=== PATIENT | female | born 1935 | race Caucasian/White ===

== ENCOUNTER 2019-12-04 15:31 | Emergency (ER) | payer MEDICARE, MEDICAID ==
[~2019-12-04] VITALS: Ht 162.6 cm; Wt 48.9 kg
[~2019-12-04 15:31] MED LIST: ACTO150T PO; CORE25TA PO; FLEEENE4 PR; GLUC1VIA2 SC; INSULANT SC; KETOROLAC 0.4%; KLOR20TA PO; LEAD1CHW PO; LEVO75TA3 PO; LISI5TAB PO; LYRI75CA PO; MAGN64TASA PO; NORV2TAB PO; OMEP20CA3 PO; PERC7.5T12 PO; POLY1POW4 PO; PREDNISOLONE AC; PREDNISOLONE AC 1% OS; PROT1TAB2 PO; SENO8.6T9 PO; TRIC1TAB PO; ULTR50TA PO; VICO5TA PO; XANA0.25 PO; ZOLO50TA PO; ZOLP-189 PO; [UNRECOGNIZED DRUG - OTHER] PO
[2019-12-04] MEDS ORDERED: HYDR-3713 (17:32)
[2019-12-04] MEDS ORDERED: ROPI1TAB3 (17:32)
[2019-12-04] MEDS ORDERED: ASPI81CH33 PO (17:32)
[2019-12-04] MEDS ORDERED: NIFE60TA40 (17:32)
[2019-12-04 19:11] VITALS: BP 144/74
== END 2019-12-04 19:12 | disposition home or self-care (01) ==
LOC: M ED 15:31
DX: F43.20 Adjustment disorder, unspecified (principal); E11.9 Type 2 diabetes mellitus without complications; I10 Essential (primary) hypertension; E07.9 Disorder of thyroid, unspecified; Z79.899 Other long term (current) drug therapy; Z79.82 Long term (current) use of aspirin; Z79.890 Hormone replacement therapy; Z91.040 Latex allergy status; Z88.8 Allergy status to other drugs, medicaments and biological substances